=== PATIENT | female | born 1950 | race Caucasian/White ===

== ENCOUNTER 2019-09-14 10:44 | Day surgery (SDC) | payer OTHER, MEDICARE ==
[2019-09-14] MEDS ORDERED: Xylocaine 1% Vial 30 ML PF IJ ONE (10:45)
[2019-09-14] MEDS ORDERED: Sodium Chloride 0.9(Preservative Free) 10 ML IJ ONE (10:45)
[2019-09-14] MEDS ORDERED: Depo-Medrol 40 MG/ML IM ONE (10:45)
[2019-09-14] MEDS ORDERED: DIPRIVAN 200 MG/20 ML IV ONE (12:15)
[2019-09-14] MEDS ORDERED: Ketamine HCl 50 MG/ML ONE (12:15)
--- NOTE | 2019-09-14 13:47 | XRAY ---
Indication: Lumbar MAYNOR. Intraoperative fluoroscopy was provided for 12 seconds. 2 digital spot images submitted for interpretation demonstrates a posterior midline needle tip just posterior to the L5-S1 interspace. Small amount of contrast injected for needle tip placement. Correlate with intraoperative findings/report.
--- NOTE | 2019-09-14 13:59 | XRAY ---
12 seconds fluoroscopy time in surgery for lumbar MAYNOR.
[2019-09-14] MEDS ORDERED: Lactated Ringers 1,000 ML IV ONE (15:56)
== END 2019-09-14 12:40 | disposition home or self-care (01) ==
LOC: SDC-PAIN 10:44
PROVIDERS: ATTEND Psychiatry & Neurology Pain Medicine
DX: M54.16 Radiculopathy, lumbar region (principal); E78.00 Pure hypercholesterolemia, unspecified; K21.9 Gastro-esophageal reflux disease without esophagitis; Z79.899 Other long term (current) drug therapy
CPT/HCPCS: 62323; 72100; 77003; J1030; J2001; J2704; Q9966

== ENCOUNTER 2021-04-24 11:40 | Day surgery (SDC) | payer OTHER, MEDICARE ==
[2021-04-24] MEDS ORDERED: Sodium Chloride 0.9% 10 ML FLUSH Syringe IJ ONE (11:41)
[2021-04-24] MEDS ORDERED: Depo-Medrol 40 MG/ML IM ONE (11:41)
[2021-04-24] MEDS ORDERED: DIPRIVAN 200 MG/20 ML IV ONE (13:19)
[2021-04-24] MEDS ORDERED: Lactated Ringers 1,000 ML IV ONE (14:59)
--- NOTE | 2021-04-24 14:59 | XRAY ---
Indication: Left L4-S1 transforaminal MAYNOR. Intraoperative fluoroscopy provided for 28 seconds. 4 digital spot images submitted for interpretation demonstrates posterior needle tips projecting over the expected left L4 and L5 nerve roots. Small amount of contrast injected for needle tip placement.. Correlate with intraoperative findings/report.
--- NOTE | 2021-04-24 16:42 | XRAY ---
28 seconds of fluoroscopy was used in surgery for a left L4-S1 transforaminal MAYNOR.
== END 2021-04-24 13:45 | disposition home or self-care (01) ==
LOC: SDC-PAIN 11:40
PROVIDERS: ATTEND Psychiatry & Neurology Pain Medicine
DX: M54.16 Radiculopathy, lumbar region (principal); Z79.899 Other long term (current) drug therapy
CPT/HCPCS: 64483; 64484; 72100; 77003; J1030; J2704; Q9966

== ENCOUNTER 2021-05-15 08:16 | Day surgery (SDC) | payer OTHER, MEDICARE ==
[2021-05-15] MEDS ORDERED: Depo-Medrol 40 MG/ML IM ONE ×2 (09:20)
[2021-05-15] MEDS ORDERED: Sodium Chloride 0.9(Preservative Free) 10 ML IJ ONE ×2 (09:20)
[2021-05-15] MEDS ORDERED: Lactated Ringers 1,000 ML IV ONE (09:31)
[2021-05-15] MEDS ORDERED: DIPRIVAN 200 MG/20 ML IV ONE (10:02)
[2021-05-15] MEDS ORDERED: TORAdol 30 mg Injection ONE (10:20)
--- NOTE | 2021-05-15 11:30 | XRAY ---
Indication: Right L4-S1 transforaminal MAYNOR. Intraoperative fluoroscopy provided for 30 seconds. 5 digital spot image submitted for interpretation demonstrates posterior needle tips projecting over the expected right L4 and L5 nerve roots. Small amount of contrast injected for needle tip placement. Correlate with intraoperative findings/report.
--- NOTE | 2021-05-15 12:31 | XRAY ---
30 seconds of fluoroscopy was used in surgery for a right L4-S1 transforaminal MAYNOR.
== END 2021-05-15 10:50 | disposition home or self-care (01) ==
LOC: SDC-PAIN 08:16
PROVIDERS: ATTEND Psychiatry & Neurology Pain Medicine
DX: M54.16 Radiculopathy, lumbar region (principal); Z79.899 Other long term (current) drug therapy
CPT/HCPCS: 64483; 64484; 72100; 77003; J1030; J1885; J2704; Q9966

== ENCOUNTER 2022-06-18 14:37 | Day surgery (SDC) | payer OTHER, MEDICARE ==
[2022-06-18] MEDS ORDERED: BUPIVACAINE 0.5% VIAL IJ ONE (14:38)
[2022-06-18] MEDS ORDERED: Depo-Medrol 40 MG/ML IM ONE (14:38)
[2022-06-18] MEDS ORDERED: LIDOCAINE HCL 1% 50 MG/5 ML VL PF IJ ONE (14:38)
--- NOTE | 2022-06-18 19:39 | XRAY ---
Indication: Left shoulder and subacromial bursa injection. Intraoperative fluoroscopy provided for 21 seconds. 2 digital spot images submitted for interpretation demonstrates needle tip projecting over the left glenohumeral joint superiorly. Second needle tip subacromial. Small amount of contrast injected for both needle tip placement. Correlate with intraoperative findings/report.
--- NOTE | 2022-06-19 08:42 | XRAY ---
21 seconds of fluoroscopy was used in surgery for a left intra-articular shoulder and subacromial bursa injection.
== END 2022-06-18 17:30 | disposition home or self-care (01) ==
LOC: SDC-PAIN 14:37
PROVIDERS: ATTEND Psychiatry & Neurology Pain Medicine
DX: M75.52 Bursitis of left shoulder (principal); M19.012 Primary osteoarthritis, left shoulder; Z79.899 Other long term (current) drug therapy
CPT/HCPCS: 20610; 73030; 77002; J1030; J2001; Q9966

== ENCOUNTER 2022-07-23 07:54 | Day surgery (SDC) | payer OTHER, MEDICARE ==
[2022-07-23] MEDS ORDERED: BUPIVACAINE 0.5% VIAL IJ ONE (07:55)
[2022-07-23] MEDS ORDERED: Depo-Medrol 40 MG/ML IM ONE (07:55)
[2022-07-23] MEDS ORDERED: Sodium Chloride 0.9(Preservative Free) 10 ML IJ ONE (07:55)
[2022-07-23] MEDS ORDERED: DIPRIVAN 200 MG/20 ML IV ONE (08:29)
--- NOTE | 2022-07-23 09:09 | XRAY ---
Indication: Left L4-S1 transforaminal MAYNOR. Intraoperative fluoroscopy provided for 41 seconds. 4 digital spot image submitted for interpretation demonstrates posterior needle tips projecting over the expected left L4 and L5 nerve roots. Small amount of contrast injected for needle tip placement. Correlate with intraoperative findings/report.
--- NOTE | 2022-07-23 09:10 | XRAY ---
Indication: Bilateral greater trochanter bursa injection. Intraoperative fluoroscopy provided for 13 seconds. 2 digital spot images obtained prone submitted for interpretation demonstrates needle tip projecting lateral to the left and right greater trochanters. Small amount of contrast injected for needle tip placement. Correlate with intraoperative findings/report.
--- NOTE | 2022-07-23 12:13 | XRAY ---
41 seconds of fluoroscopy was used in surgery for a left L4-S1 transforaminal MAYNOR.
--- NOTE | 2022-07-23 12:14 | XRAY ---
13 seconds of fluoroscopy was used in surgery for a bilateral greater trochanteric bursa injectionl.
[2022-07-23] MEDS ORDERED: Lactated Ringers 1,000 ML IV ONE (14:09)
== END 2022-07-23 08:42 | disposition home or self-care (01) ==
LOC: SDC-PAIN 07:54
PROVIDERS: ATTEND Psychiatry & Neurology Pain Medicine
DX: M54.16 Radiculopathy, lumbar region (principal); M70.62 Trochanteric bursitis, left hip; M70.61 Trochanteric bursitis, right hip; Z79.899 Other long term (current) drug therapy
CPT/HCPCS: 20610; 64483; 64484; 72100; 73521; 77002; 77003; J1030; J2704; Q9966